=== PATIENT | male | born 1955 | race Caucasian/White ===

== ENCOUNTER → 2019-01-16 11:48 | Outpatient (CLI) | payer MEDICARE, OTHER, SELFPAY ==
[2019-01-16 12:28] LABS: Add Manual Diff / Slide Review NO; Basophils Absolute Auto 0 /uL (0-100); Basophils Percent Auto 0.6 % (0-2); Eosinophils Absolute Auto 0 /uL (0-450); Eosinophils Percent Auto 0.6 % (2-4); Hematocrit 44.1 % (41-53); Hemoglobin 15.2 g/dL (13.5-17.5); Lymphocytes Absolute Auto 1500 /uL (1100-4500); Lymphocytes Percent Auto 20.8 % (25-40); Mean Corpuscular HGB Conc 34.5 % (30-36); Mean Corpuscular Hemoglobin 31.4 PG (26-34); Mean Corpuscular Volume 90.9 fL (80-100); Monocytes Absolute Auto 600 /uL (0-900); Monocytes Percent Auto 8.6 % (3-14); Neutrophils Absolute Auto 4900 /uL (1500-7000); Neutrophils Percent Auto 69.4 % (50-75); Platelet Count 253 X10^3/uL (150-400); Red Blood Cell Count 4.85 X10^6/uL (4.5-5.9); Red Cell Distribution Width 13.3 % (11.6-14.8); White Blood Cell Count 7.1 X10^3/uL (4.5-11.0)
[2019-01-16 12:39] LABS: BUN Creatinine Ratio 18.9 (6-22); Blood Urea Nitrogen 17 mg/dL (9-20); Calcium 9.6 mg/dL (8.4-10.2); Carbon Dioxide 24 mmol/L (22-32); Chloride 104 mmol/L (98-107); Cholesterol 195 mg/dL (140-199); Estimated Glomerular Filt Rate > 60.0 mL/min (>60); Glucose 97 mg/dL (80-110); HDL Cholesterol 49 mg/dL (40-60); HEMOLYSIS 15 (0-50); Magnesium 2.1 mg/dL (1.6-2.3); Potassium 4.7 mmol/L (3.4-5.1); Sodium 139 mmol/L (137-145); Triglycerides 432 mg/dL (35-150)
== END ==
PROVIDERS: Visit Provider Internal Medicine Cardiovascular Disease
DX: I47.2 Ventricular tachycardia (principal); I25.10 Atherosclerotic heart disease of native coronary artery without angina pectoris; E78.5 Hyperlipidemia, unspecified
CPT/HCPCS: 36415; 80048; 80061; 83735; 85025

== ENCOUNTER → 2019-01-30 09:13 | Outpatient (CLI) | payer MEDICARE, OTHER, SELFPAY ==
--- NOTE | 2019-01-30 | DI.ECHO.S_ITS ---
[facility] +---------+ : : [address] : : : : [id number] : : : : Phone: [phone]---------+ Echocardiogram Report + + :Name: CAROLYN ALFREDO Study Date: 01/30/2019 Height: 78 in : :[facility] Weight: 246 lb : : Gender: Male BSA: 2.5 m2 : :: 1955 Age: 64 yrs BP: 118/78 mmHg: :Reason For Study: Conduction Disorder, RBBB : :Ordering Physician: Da : :Lexie Reddy Performed By: Paula Chawla : :Referring: Dr. Humphrey Gardner : + + Interpretation Summary 1) Normal left ventricular thickness, size, wall motion, and systolic function (EF 55-60%). 2) Normal right ventricular size and function. 3) The left atrium is moderately dilated. 4) No significant valvular abnormalities. 5) The aortic root is mildly dilated at 4.2cm. The ascending aorta is mildly enlarged at 3.9cm. The aortic arch is mildly enlarged at 3.7cm. 6) ) No prior Echo available for comparison. Procedure: A two-dimensional transthoracic echocardiogram with color flow and Doppler was performed. The study quality was technically good. There is no prior echocardiogram noted for this patient. The heart rate ranged between 57- 60 bpm during the study. Left Ventricle: The left ventricle is normal in size. Left ventricular wall thickness is at the upper limits of normal. The ejection fraction is estimated to be 55-60%. Left ventricular systolic function is normal without focal wall motion abnormalities. Diastolic parameters suggest a relaxation abnormality of the left ventricle, consistent with probable normal filling pressures. Right Ventricle: The right ventricle is normal size. The right ventricular systolic function is normal. Atria: The left atrium is moderately dilated. Right atrial size is normal. The interatrial septum is intact with no evidence for an atrial septal defect. Mitral Valve: The mitral valve is normal in structure and function. There is no mitral regurgitation noted. Aortic Valve: The aortic valve is trileaflet. The aortic valve opens well. There is no aortic valve stenosis. No aortic regurgitation is present. Tricuspid Valve: The tricuspid valve is normal in structure and function. There is a trace or physiologic amount of tricuspid regurgitation. The right ventricular systolic pressure is estimated to be at least 21 mmHg based on an estimated right atrial pressure of 3 mm Hg. Pulmonic Valve: The pulmonic valve is not well seen, but is grossly normal. There is trace pulmonic regurgitation. Great Vessels: The aortic root is mildly dilated. The ascending aorta is mildly enlarged. The aortic arch is mildly enlarged. The IVC is of normal diameter and collapses greater than 50% with a sniff. This suggests a low right atrial pressure of 3 mm Hg. Pericardium/ Pleura There is no pericardial effusion. There is no pleural effusion. MMode/2D Measurements & Calculations LVIDd: 5.6 cm Ao root diam: 4.2 cm LVIDs: 3.6 cm Aortic Jxn: 3.8 cm FS: 36.5 % asc Aorta Diam: 3.9 cm EPSS: 0.82 cm Ao Arch Diam (Prox Trans): 3.7 cm IVSd: 1.1 cm LVPWd: 1.0 cm LV brink. diameter/BSA (cm/m^2): 2.3 LV sys. diameter/BSA (cm/m^2): 1.4 LA dimension: 4.2 cm RA long axis: 6.2 cm LA A2 area: 34.4 cm2 RA area: 26.0 cm2 LA A4 area: 24.8 cm2 RA vol: 92.5 ml LA length (vol): 6.5 cm RA : 37.5 ml/m2 LA vol: 111.0 ml IVC diam: 1.6 cm LA vol index: 45.0 ml/m2 RVDd major: 6.8 cm RVD1 (basal): 3.7 cm RVD2 (mid): 3.2 cm Doppler Measurements & Calculations Ao V2 max: 112.5 cm/sec MV E max ki: 36.2 cm/sec Ao V2 mean: 72.0 cm/sec MV A max ki: 42.4 cm/sec Ao max P.1 mmHg MV E/A: 0.85 Ao mean P.5 mmHg Med Peak E' Ki: 4.7 cm/sec Ao V2 VTI: 20.0 cm E/E' med: 7.6 Lat Peak E' Ki: 7.7 cm/sec E/E' lat: 4.7 E/e' average: 6.2 MV dec time: 0.17 sec MV P1/2t: 50.6 msec TR max ki: 209.8 cm/sec MV P1/2t max ki: 35.1 cm/sec TR max P.6 mmHg MVA(P1/2t): 4.4 cm2 PA V2 max: 73.3 cm/sec PA V2 mean: 45.7 cm/sec PA mean P.0 mmHg PA Accel Time: 0.08 sec Reading Physician:01:34 PM
--- NOTE | 2019-01-30 15:11 | P.PCN_ITS ---
Cardiac Stress Test Report Referral & Results Date Patient Seen: 01/30/19 Requesting provider: Da Reddy Indication: Right bundle branch block, preop Rest ECG: Right bundle branch block, previously identified Procedure Note: Today following both written and verbal informed consent the patient was exercised according to a standard Jordan protocol patient went for a total of 6 min 5 sec achieving a maximum heart rate of 141 on maximum systolic blood pressure of 200. This is approximately 7.0 METS. Exercise was terminated at this point because of targets for med and patient was really unable to continue at a faster pace for orthopedic reasons. Patient was also given Cardiolite through a previously started Hep-Lock IV by the nuclear equipment test engineer approximately 1 minute prior to the cessation of exercise. No noted ST T segment changes with the right bundle-branch block the baseline Occasional to somewhat frequent PVCs including ventricular couplets more prominent during exercise but still present at rest and recovery Function aerobic impairment rates about 15% sedentary scale Impression: No clear ECG evidence of ischemia with baseline abnormal ECG Please see perfusion imaging report for further details regarding possible ischemia Please note: Actual ECG tracings can be found in the PACS system.
--- NOTE | 2019-01-30 17:36 | DI.NM.S_ITS ---
DATE OF SERVICE: 01/30/2019 PROCEDURE: Exercise perfusion study. INDICATIONS: Underlying right bundle-branch block with hypertension, hyperlipidemia, preop. RADIOPHARMACEUTICAL: 27.4 mCi technetium-99m Myoview IV was injected at stress and 13.4 mCi technetium-99m Myoview IV was injected at rest. CARDIAC STRESS: Patient underwent exercise perfusion study under the supervision of an attending staff. Patient walked on Jordan protocol for 6 minutes 05 seconds and achieved 92% of target heart rate, and hypertensive blood pressure response. Resting blood pressure 118/72. Peak blood pressure 200/100. Functional aerobic impairment positive 25%. Patient achieved 7 METs of workload. Baseline rhythm was sinus with right bundle-branch block. Stress EKG did not reveal any obvious inducible ischemic changes. There was some isolated PVCs without any ventricular tachycardia. RAW DATA: There appears to be adequate myocardial uptake. Increased subdiaphragmatic activity. Spleen appears to be enlarged. GATED STUDY: Stress LV ejection fraction 64%. No obvious wall motion abnormalities. No transient ischemic dilatation. Resting end-diastolic volume is 124 mL. TID ratio is 0.87, which is within normal limits. Lung/heart ratio is 0.43, which is within normal limits. MYOCARDIAL PERFUSION SCAN: Stress supine and resting supine images revealed [id number] sized, [id number] decreased perfusion of inferior wall, inferior apex, as well as inferolateral wall which got significantly improved during prone images suggestive of diaphragmatic tissue attenuation artifact. No convincing ischemia infarction pattern seen. CONCLUSION: I will call this study likely a normal myocardial perfusion study with evidence of diaphragmatic tissue attenuation artifact which got resolved during prone images. Patient walked on Jordan protocol for 6 minutes 05 seconds. Hypertensive blood pressure response. Achieved 7 METs of workload. During raw images, there is a suspicion for enlarged spleen. Correlate clinically and if needed, get ultrasound of the abdomen to rule out spleen enlargement. No obvious ischemic EKG changes. As far as perfusion scan is concerned, this is a low-risk myocardial perfusion scan. MartínezalleyRichardson - DEYANIRA/cuca/ doc#: [id number]/job#: [id number] dd: 01/30/2019 17:04:00 dt: 01/30/2019 17:25:00 DICTATING MD/COPIES TO: José Miguel Puga MD; Da Reddy MD COPIES MNE: SHALOM BUCKLEYB
== END ==
PROVIDERS: PCP Family Medicine; Visit Provider Internal Medicine Cardiovascular Disease
DX: I45.10 Unspecified right bundle-branch block (principal); I45.9 Conduction disorder, unspecified; I49.3 Ventricular premature depolarization; R94.31 Abnormal electrocardiogram [ECG] [EKG]; I10 Essential (primary) hypertension; E78.5 Hyperlipidemia, unspecified
CPT/HCPCS: 78452; 93016; 93017; 93018; 93306; A9502